=== PATIENT | male | born 1975 | race Caucasian/White ===

== ENCOUNTER 2025-05-04 11:46 | Inpatient (IN) | payer OTHER ==
[~2025-05-04] VITALS: Ht 175.3 cm; Wt 103.6 kg
[2025-05-04 12:51] LABS: PLATELET COUNT, AUTOMATED 271 10^3/uL (150-450)
[2025-05-04 13:14] LABS: ETHYL ALCOHOL (ETHANOL) < 0.003 % (0.000-0.010)
[2025-05-04 13:16] LABS: SALICYLATE LEVEL < 3.0 MG/DL (<30)
[2025-05-04 14:08] LABS: AMPHETAMINES LEVEL URINE NEGATIVE (NEGATIVE); BARBITURATES URINE NEGATIVE (NEGATIVE); BENZODIAZEPINES URINE NEGATIVE (NEGATIVE); COCAINE METABOLITE URINE NEGATIVE (NEGATIVE); METHADONE URINE NEGATIVE (NEGATIVE)
[2025-05-04 14:09] LABS: CANNABINOIDS URINE NEGATIVE (NEGATIVE); OPIATES URINE NEGATIVE (NEGATIVE); PHENCYCLIDINE URINE NEGATIVE (NEGATIVE)
[2025-05-04 14:20] LABS: ALT/SGPT 33 U/L (7.0-40); AST/SGOT 19 U/L (<34); CALCIUM LEVEL 9.2 MG/DL (8.5-10.1); CARBON DIOXIDE LEVEL 26 MMOL/L (20-31); CHLORIDE LEVEL 108 MMOL/L (98-107); CREATININE FOR GFR 0.87 MG/DL (0.70-1.30); GLOMERULAR FILTRATION RATE > 90.0 (>60); POTASSIUM SERUM 4.3 MMOL/L (3.5-5.1); SODIUM LEVEL 144 MMOL/L (136-145)
[2025-05-04] MEDS ORDERED: LORazepam 1 MG TAB PO PRN (15:40)
[2025-05-04] MEDS ORDERED: OLANZapine 5 MG TAB PO PRN (15:40)
[2025-05-04] MEDS ORDERED: traZODone 50 MG TAB PO PRN (15:40)
[2025-05-04] MEDS ORDERED: HALOPERIDOL 5 MG TAB PO PRN (15:40)
[2025-05-04] MEDS ORDERED: MOM 30 ML SUSPENSION UDC PO PRN (15:40)
[2025-05-04] MEDS ORDERED: MAALOX 30 ML SUSP *UDC PO PRN (15:40)
[2025-05-04] MEDS ORDERED: SERT-141 PO (15:53)
[2025-05-04] MEDS ORDERED: POTA-150 PO (15:53)
[2025-05-04] MEDS ORDERED: HOME MED LIST COMPLETE! XX SCH (15:55)
[2025-05-04 16:58] VITALS: BP 138/77; TEMP 97.6; O2SAT 99
[2025-05-04] MEDS: NICOTINE 14 MG/24 HR TRANSDERMAL TD SCH (17:23)
[2025-05-05] MEDS ORDERED: UNRESOLVED CLARIFICATION ENTRY XX SCH (00:01)
[2025-05-05 06:42] VITALS: BP 124/92; TEMP 97.5; O2SAT 99
[2025-05-05] MEDS: SERTRALINE HCL 50 MG TAB PO SCH (14:00)
[2025-05-05 14:42] VITALS: BP 129/79; TEMP 98; O2SAT 97
[2025-05-05] MEDS: IBUPROFEN 400 MG TAB PO PRN (19:43)
[2025-05-05] MEDS: ACETAMINOPHEN 325 MG TAB PO PRN (21:29)
[2025-05-05] MEDS: QUEtiapine FUMARATE 50MG TAB PO SCH (21:30)
[2025-05-06 06:40] VITALS: BP 129/87; TEMP 97.7; O2SAT 98
[2025-05-06 15:09] VITALS: BP 145/90; TEMP 98.4; O2SAT 95
[2025-05-07 06:00] VITALS: BP 125/82; TEMP 97.8; O2SAT 98
== END 2025-05-07 13:06 | disposition home or self-care (01) | DRG 885 ==
LOC: M ED 11:46 → M ED INP 15:38 → M PSY 16:35
PROVIDERS: ADMIT Internal Medicine; ATTEND Internal Medicine
DX: F33.1 Major depressive disorder, recurrent, moderate (principal); R45.851 Suicidal ideations; F41.0 Panic disorder [episodic paroxysmal anxiety]; F43.10 Post-traumatic stress disorder, unspecified; H91.90 Unspecified hearing loss, unspecified ear; F12.90 Cannabis use, unspecified, uncomplicated; G89.29 Other chronic pain